=== PATIENT | female | born 1995 | race Caucasian/White ===

== ENCOUNTER 2024-03-03 15:27 | Emergency (ER) | payer OTHER ==
[~2024-03-03] VITALS: Ht 170.2 cm; Wt 73.0 kg
[2024-03-03 15:36] VITALS: TEMP 98.2; O2SAT 100
[2024-03-03] MEDS ORDERED: KETOROLAC 30MG/ML VIAL IV STA (17:18)
[2024-03-03] MEDS: SODIUM CHLORIDE 0.9% 1,000 ML IV ONE ×2 (18:48→20:53)
[2024-03-03 19:14] LABS: HEMATOCRIT. 35.1 % (36.0-48.0); HEMOGLOBIN. 12.2 g/dL (12.0-16.0); MEAN CORPUSCULAR HGB CONC 34.8 g/dL (31.0-37.0); MEAN CORPUSCULAR VOLUME 94.9 fL (81.0-99.0); MEAN PLATELET VOLUME 7.9 fl (7.4-10.4); PLATELET 210 x1000/uL (130-400); RED CELL DISTRIBUTION WIDTH 12.1 % (11.6-14.6); WHITE BLOOD COUNT 12.4 x1000/uL (4.5-11.0)
[2024-03-03 19:17] LABS: CHLORIDE 105 mEq/L (98-107); DIFFERENTIAL COMMENT 1; POTASSIUM 4.2 mEq/L (3.5-5.1); SODIUM 139 mEq/L (136-145)
[2024-03-03 19:18] LABS: CARBON DIOXIDE 26 mEq/L (21-32)
[2024-03-03 19:21] LABS: PROTHROMBIN TIME 11.4 sec (9.6-11.0)
[2024-03-03 19:22] LABS: HCG SCREEN NEGATIVE
[2024-03-03 19:23] LABS: CREATININE 0.8 mg/dL (0.6-1.0); GLUCOSE 139 mg/dL (70-105); TROPONIN I HIGH SENSITIVITY 20 ng/L (3.0-34); UREA NITROGEN BLOOD 16 mg/dL (9-23)
[2024-03-03 20:44] LABS: PLATELET ESTIMATE NORMAL
[2024-03-03 21:51] LABS: CLARITY URINE CLOUDY (CLEAR); COLOR URINE YELLOW (YELLOW); GLUCOSE URINE NEGATIVE (NEGATIVE); KETONES URINE 1+ (NEGATIVE); LEUKOCYTE ESTERASE URINE 2+ (NEGATIVE); NITRITE URINE NEGATIVE (NEGATIVE); OCCULT BLOOD URINE 1+ (NEGATIVE); PH URINE 7.5 (4.5-8.0); PROTEIN URINE TRACE (NEGATIVE); SPECIFIC GRAVITY URINE 1.051 (1.005-1.030)
[2024-03-03 22:16] LABS: BACTERIA URINE 1+; SQUAMOUS EPITHELIAL CELL URINE 1+ /lpf (RARE/1+)
[2024-03-03 22:25] LABS: TROPONIN I HIGH SENSITIVITY 16 ng/L (3.0-34)
[2024-03-03] MEDS: ACETAMINOPHEN 1000MG/100ML 100 ML IV ONE (22:26)
[2024-03-03 23:00] VITALS: BP 104/57; PULSE 86; RESP 16; O2SAT 99
[2024-03-03] MEDS: KETOROLAC 30MG/ML VIAL IV NR (23:05)
[2024-03-03] MEDS: LEVOFLOXACIN 750MG PREMIX 150 ML IV ONE (23:10)
[2024-03-03] MEDS ORDERED: AZTREONAM 500 MG in DEXTROSE 5% WATER 50 ML IV STA (23:39)
[2024-03-04] MEDS ORDERED: CIPR-263 MT (00:14)
== END 2024-03-04 00:51 | disposition home or self-care (01) ==
LOC: ER 15:27
DX: R55 Syncope and collapse (principal); N39.0 Urinary tract infection, site not specified; R07.9 Chest pain, unspecified; Z88.2 Allergy status to sulfonamides; N83.209 Unspecified ovarian cyst, unspecified side; Z88.0 Allergy status to penicillin
CPT/HCPCS: 99285; 71275; 96365; 96361; 71045; 96375; 80048; 81003; 84703; 83605; 85025; 85610; 87040; 84484; 36415; 70450; 74176; J3490; J1885; J7060; J7030; J0131